=== PATIENT | male | born 2000 | race Caucasian/White ===

== ENCOUNTER 2021-08-12 15:01 | Emergency (ER) | payer BC, SELFPAY ==
[2021-08-12 15:07] VITALS: BP 157/63; PULSE 66; RESP 12; TEMP 36.8; O2SAT 100
--- NOTE | 2021-08-12 15:32 | ED.URI ---
HPI - URI/Sore Throat General Chief Complaint: Upper Respiratory Infection Stated Complaint: earache/sinus pain Source: patient and RN notes reviewed Limitations: no limitations History of Present Illness HPI Narrative: The vaccinated patient, a non-smoker/nondrinker college student, presents with 1/2-week history of left> right ear discomfort. This was preceded by scratchy throat, purulent rhinitis, sinus HERRERA. No fever, , dry cough; no loss of taste/smell, CP, wheezing/sneezing, S OB. Symptoms are mild Related Data Allergies Allergy/AdvReac Type Severity Reaction Status Date / Time No Known Allergies Allergy Verified 08/12/21 15:08 Review of Systems Review of Systems: The patient has been informed that they may have pre-hypertension or Hypertension based on a BP reading in the department. I recommend that the patient call the primary care provider listed on their discharge instructions or a physician of their choice this week to arrange follow up for further evaluation of possible pre-hypertension or Hypertension General/Constitutional: No weight loss,fever Eyes: N0: Redness,discharge Ears/Nose/Throat: No: Epistaxis,ear discharge Respiratory: Denies: Hemoptysis Gastrointestinal: No Vomiting, Bleeding-rectal Skin: No Lumps, eruption Neurologic: No Focal Weakness,Sz Hematologic: Denies: Petechiae/Purpura Psychiatric: No: Suicida ideationl All Other Systems: Reviewed and Negative PMFSH Comments At time of signature, agree with nursing past medical, surgical, social and family history. There is no relevant family history pertinent to the presenting complaint Exam Narrative: General Appearance: Well appearing, Well nourished EYE: PERRLA, Conjunctiva clear Ears: Auditory canal normal, left TM bulging red, right TM normal Nose: Rhinorrhea, Mucousal erythema Mouth/Throat: MM moist, Uvula midline, Pharyngeal erythema Neck: Supple, No adenopathy Respiratory: No respiratory distress, Breath sounds equal, Clear to auscultation Cardiovascular: RRR, No JVD Musculoskeletal: Non tender, Normal strength Skin: Warm, Dry Neurological: A&O x3, CN II-XII intact Psychiatric: Normal mood, Normal affect Course Vital Signs Vital signs: Vital Signs Temperature 98.3 F 08/12/21 15:07 Pulse Rate 66 08/12/21 15:07 Respiratory Rate 12 08/12/21 15:07 Blood Pressure 157/63 H 08/12/21 15:07 Pulse Oximetry 100 08/12/21 15:07 Temperature 98.3 F 08/12/21 15:07 Pulse Rate 66 08/12/21 15:07 Respiratory Rate 12 08/12/21 15:07 Blood Pressure 157/63 H 08/12/21 15:07 Pulse Oximetry 100 08/12/21 15:07 MDM - URI/Sore Throat Lab Data Labs: Lab Results 08/12/21 Range/Units 15:36 POC SARS CoV-2 Ag Negative (Negative) Discharge Plan Discharge Clinical Impression: Otitis media of left ear Qualifiers: Otitis media type: suppurative Chronicity: acute Recurrence: non-recurrent Spontaneous tympanic membrane rupture: without spontaneous rupture Qualified Code(s): H66.002 - Acute suppurative otitis media without spontaneous rupture of ear drum, left ear Patient Disposition: Home, Self-Care Condition: Stable Instructions: Ear Infection (ED) Prescriptions: New amoxicillin-pot clavulanate [Augmentin] 500-125 mg tablet 1 tablet PO TID Qty: 30 RF: 0 Follow-up/Referrals: PHYSICIAN,RESEARCH PHYSICIAN [Primary Care Provider] - Stand Alone Forms: Work/School Release IP
== END 2021-08-12 15:47 | disposition home or self-care (01) ==
PROVIDERS: Emergency Provider Emergency Medicine
DX: H66.002 Acute suppurative otitis media without spontaneous rupture of ear drum, left ear (principal); Z20.822 Contact with and (suspected) exposure to COVID-19
CPT/HCPCS: 87426; 99213; C9803; G0463